=== PATIENT | female | born 1980 | race Caucasian/White ===

== ENCOUNTER 2016-09-10 07:05 | Inpatient (IN) | payer OTHER ==
[~2016-09-10 07:05] MED LIST: DINOPROSTONE 10 MG VAGINAL SUPPOSITORY VG ONE
[2016-09-10 08:22] LABS: BASOPHIL 0.3 % (0-2.0); EOSINOPHIL 1.3 % (0-4.5); MCH 27.6 pg (25.7-33.7); MEAN CELL VOLUME 83.5 fl (80-96); MEAN PLT VOLUME 7.6 fl (7.5-11.1); NEUTROPHILS 77.7 % (42.8-82.8); PLATELET COUNT 228 K/MM3 (134-434); RDW 14.9 % (11.6-15.6); WHITE BLOOD COUNT 13.5 K/mm3 (4.0-10.0)
[2016-09-10 08:24] VITALS: BMI 37.9
[2016-09-10 08:47] LABS: CALCIUM 8.5 mg/dL (8.5-10.1); COCKROFT - GAULT 211.038; CREATININE 0.6 mg/dL (0.55-1.02); INR 1.01 (0.82-1.09); PROTHROMBIN TIME (PATIENT) 11.1 SEC (9.98-11.88)
[2016-09-10 08:50] LABS: ACTIVATED PTT 28.5 SECONDS (26.9-34.4)
[2016-09-10] MEDS ORDERED: BUTORPHANOL TARTRATE 1 MG/ML VIAL IVPUSH ONE ×2 (15:00→19:28)
[2016-09-10] MEDS: DEXTROSE 5%-LACTATED RINGERS 1,000 ML IV SCH (15:05)
[2016-09-10] MEDS ORDERED: AMPICILLIN 2 GM/100 ML BAG (PRE-DOCKED) IVPB ONE (15:10)
--- NOTE | 2016-09-10 16:32 | HP ---
Past Medical History - Primary Care Physician PCP:: Luz Yepez - Admission Chief Complaint: 35 yrs , ectopic 1, 40.6 weeks admitted for induction of labor . last sono & Bpp done on 09/04/16 sliup, Vx,Post Placenta, AFI14.5, largest pocket 6.4cm, BPP8/9,Efw 8'7" History of Present Illness: pnc at [address] [place] [id number] . wt gain 28 lbs work Up : O Pos, Rpr nr, Hbsag neg, Rubella pos, Quantiferon neg, GBS Pos, ! hr UHr254, Hiv neg Serial sono for growth by MFM NT screen risk for Trosomy 1:117 AFP & materna T-21 neg Genetic counselling was done due to one child has Down syndrome. 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 G2 2005 Ectopic , surgical removal ( [facility]). G3 03/24/08 40 weeks 6'9" baby has Down Syndrome. G4 08/06/2009 40 weeks 6'9" Heme/Onc: Yes: Anemia (rx po pnv & iron) Infectious Disease: No: HIV, STD's Endocrine: No: Diabetes Mellitus - Past Surgical History Past Surgical History: Yes: Cholecystectomy (05/2015) Hx Myomectomy: No Hx Transabdominal Cerclage: No Additional Surgical History: pelviscopic surgery for ectopic pregn ? salpingectomy in 2005 ? left salpingectomy - Smoking History Smoking history: Never smoked Have you smoked in the past 12 months: No - Alcohol/Substance Use Hx Alcohol Use: No History of Substance Use: reports: None Home Medications - Allergies Allergies/Adverse Reactions: Allergies Allergy/AdvReac Type Severity Reaction Status Date / Time No Known Drug Allergies Allergy Verified 09/10/16 08:26 - Home Medications Home Medications: Ambulatory Orders Vit #108/Iron/FA [ One Tablet] 1 each PO DAILY 06/19/16 Physical Exam - Maternity Vital Signs: Vital Signs Temperature 98.8 F 09/10/16 16:00 Pulse Rate 89 09/10/16 16:00 Respiratory Rate 20 09/10/16 16:00 Blood Pressure 131/73 09/10/16 16:00 O2 Sat by Pulse Oximetry (%) Selected Entries 09/10/16 07:05 Temperature 98.3 F Pulse Rate 101 H Blood Pressure 137/79 Weight 221 lb Constitutional: Yes: Well Nourished, No Distress, Calm, Obese Eyes: Yes: WNL HENT: Yes: WNL Neck: Yes: WNL Cardiovascular: Yes: Pulse Irregular Lungs: Clear to auscultation Breast(s): Yes: WNL - Abdominal Exam/OB Fundal Height: 42 Number of Fetuses: Single Presentation: Vertex Contractions: Yes Regularity: Irregular Intensity: Unaware Monitor Mode: External Heart Rate (range): 145 Heart Rate Location: Midline Category: I Accelerations: Uniform Decelerations: None - Vaginal Exam/OB Vaginal Bleediing: No Speculum Exam: No Dilatation (cm): close Effacement (%): unefface Amniotic Membrane Status: Intact Presentation: Vertex/Position (exam at 8.35 am) Station: -4 (-4/-3) - Physical Exam Musculoskeletal: Yes: WNL Extremities: Yes: WNL. No: Calf Tenderness Edema: Yes Edema: LLE: 1+, RLE: 1+ Integumentary: Yes: WNL Deep Tendon Reflex Grade: Normal +2 ...Motor Strength: WNL Psychiatric: Yes: WNL, Alert, Oriented - Labs Lab Results: CBC, BMP 09/10/16 08:00 09/10/16 08:00 Laboratory Tests 09/10/16 09/10/16 08:00 08:05 INR 1.01 PTT (Actin FS) 28.5 Blood Type O POSITIVE Antibody Screen Negative Problem List - Problems (1) Post-term , 40-42 weeks of gestation Code(s): O48.0 - POST-TERM (2) Obesity (BMI 35.0-39.9 without comorbidity) Code(s): E66.9 - OBESITY, UNSPECIFIED (3) Positive GBS test Code(s): B95.1 - STREPTOCOCCUS, GROUP B, CAUSING DISEASES CLASSD ELSWHR (4) Elective induction of labor planned Code(s): UKW0954 - Assessment/Plan 35 yrs , ectopic -1 , 40.6 weeks admitted for induction of labor , obesity GBS pos , start IV Ampicilin when reg UC are noted Cervidil Inserted at 8.35 am , follow portocol stadol prn for labor analgesia . Plan vaginal delivery Trial .
[2016-09-10] MEDS: AMPICILLIN (PRE-DOCKED) 1 GM/100 ML BAG IVPB SCH ×2 (18:44→22:30)
--- NOTE | 2016-09-10 19:28 | PN ---
Progress Note, Labor Vaginal Exam #1 Labor Exam Date: 09/10/16 Labor Exam Time: 19:12 Heart Rate (range): 140-150 Dilatation: 6 Effacement (%): 80 Amniotic Membrane Status: Ruptured (AROM clear small amount) Presentation: Vertex/Position Station: -3 Remarks: fhr cat-1 UC q3-4 min cervidil removed pt received stadol at 15.15 hr IV ampicillin gbs prophylaxis started . pt requests for pain meds Selected Entries 09/10/16 09/10/16 18:00 19:00 Temperature 98.5 F Pulse Rate 93 H 90 Blood Pressure 129/78 130/79 Vaginal Exam #2 Labor Exam Date: 09/10/16 Labor Exam Time: 20:30 Heart Rate (range): 140-150 Dilatation: 7 Effacement (%): 90 Amniotic Membrane Status: Ruptured Presentation: Vertex/Position Station: -2 Remarks: fhr cat-1 uc q3-4 min Vaginal Exam #3 Labor Exam Date: 09/10/16 Labor Exam Time: 21:23 Heart Rate (range): 140-90 Dilatation: 10 Effacement (%): 100 Amniotic Membrane Status: Ruptured Station: +1 (+1/+2) Remarks: FHR early decel cat-1 uc q2-3 min bleeding vaginally pt pushing
[2016-09-10] MEDS ORDERED: OXYTOCIN 15 UNITS/ LR 250 ML 250 ML IVPB SCH (19:45)
[2016-09-10] MEDS: OXYTOCIN 10 UNIT/ML 10ML MDV IV SCH ×2 (21:35→22:30)
[2016-09-10] MEDS ORDERED: METHYLERGONOVINE MALEATE 0.2 MG/1 ML AMP IM PRN (21:45)
[2016-09-10] MEDS ORDERED: CARBOPROST TROMETHAMINE 250 MCG/ML AMPUL IM ONE ×2 (22:12→22:45)
[2016-09-10] MEDS ORDERED: MISOPROSTOL 200 MCG TABLET NR ONE (22:25)
[2016-09-10] MEDS ORDERED: BENZOCAINE 20% 57 GM BOTTLE TP PRN (22:44)
[2016-09-10] MEDS ORDERED: oxyCODONE HCL 5 MG TABLET PO PRN (22:44)
[2016-09-10] MEDS ORDERED: WITCH HAZEL 50% (TUCKS) 40 PAD/JAR PAD TP PRN (22:44)
[2016-09-10] MEDS ORDERED: BENZOCAINE 28 GM HEMORRHOIDAL OINTMENT TP PRN (22:44)
[2016-09-10] MEDS ORDERED: BISACODYL 10 MG SUPP.RECT RC PRN (22:44)
--- NOTE | 2016-09-10 23:19 | PN ---
Delivery - Delivery Vaginal Delivery: Spontaneous (Atonic PPH ,bimanual massage after delivery of placenta .,MEU 21.45 im Methergine 0.2 mg im stat 22.12 Hemabate im 250 mcg 22.20 Pitocin 40 IU in 1000ml D5RL continuing 22.25 Cytotec 1000 mcg [place] 22.35 laurent catheter 22.45 Hemabate 250 mcg im 2nd dose) Episiotomy/Laceration: None EBL (cc): 600 (PPH Atonic ) Delivery, Single - Stages of Labor Date 1st Stage Initiatied: 09/10/16 Time 1st Stage Initiated: 14:30 Date 2nd Stage Initiated: 09/10/16 Time 2nd Stage Initiated: 21:23 Date of Delivery: 09/10/16 Time of Delivery: 21:33 Date Placenta Delivered: 09/10/16 Time Placenta Delivered: 21:35 Placenta: Yes: Spontaneous, Uterine Exploration - Condition of Infant 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 IV stadol 2mg given twice Atonic PPH managed by giving Uterotonic meds ( methergine0.25 mg cytotec 1000mcg ,, hemabate 250 mcg x2 doses & Pitocin 40 IU in 1000 ml 22.30 hr v/s Bp 141/72, pulse 95/min o2 sat 98 23.00 hr BP 135/92, pulse 93/min urine out put ( st cath 100 ml at 22.05 hr , laurent output 350 ml at 23.30 hr . TEDS & SCD given
[2016-09-11] MEDS: ACETAMINOPHEN 325 MG TABLET (FP) PO PRN ×3 (01:20→21:05)
[2016-09-11] MEDS: IBUPROFEN 600 MG TABLET (FP) PO PRN ×3 (01:20→21:03)
[2016-09-11] MEDS: D5W-LR W/ 20 UNITS OXYTOCIN 1,000 ML IV SCH (05:19)
[2016-09-11 08:17] LABS: MCH 27.1 pg (25.7-33.7); MCHC 32.3 g/dl (32.0-36.0); MEAN CELL VOLUME 83.9 fl (80-96); MEAN PLT VOLUME 7.7 fl (7.5-11.1); PLATELET COUNT 215 K/MM3 (134-434); RDW 15.2 % (11.6-15.6); WHITE BLOOD COUNT 20.1 K/mm3 (4.0-10.0)
--- NOTE | 2016-09-11 08:20 | PN ---
Post Progress Note - Subjective Subjective: pt feels weak c/o pain at Im injection site on rt thigh bleeding is not heavy. not voided since laurent is taken out Post Day: 1 Type of Delivery: Vital Signs: Vital Signs Temperature 98.8 F 09/11/16 06:00 Pulse Rate 80 09/11/16 06:00 Respiratory Rate 18 09/11/16 06:00 Blood Pressure 131/76 09/11/16 06:00 O2 Sat by Pulse Oximetry (%) 99 09/11/16 01:15 Breast Exam: Yes: Soft Uterus: Yes: Fundus Firm, Fundus below umbilicus, Non-tender Lochia: Yes: Rubra Lochia, amount: Moderate Extremities: Yes: Calves non-tender (slight erythema around im injection site on rt thigh , Rx ice pack ) Perineum: Yes: Intact Activity: Other (not oob yet ) - Labs Labs: CBC WBC 13.5 K/mm3 (4.0-10.0) H 09/10/16 08:00 RBC 3.91 M/mm3 (3.60-5.2) D 09/10/16 08:00 Hgb 10.8 GM/dL (10.7-15.3) D 09/10/16 08:00 Hct 32.6 % (32.4-45.2) D 09/10/16 08:00 MCV 83.5 fl (80-96) 09/10/16 08:00 MCHC 33.0 g/dl (32.0-36.0) 09/10/16 08:00 RDW 14.9 % (11.6-15.6) D 09/10/16 08:00 Plt Count 228 K/MM3 (134-434) 09/10/16 08:00 MPV 7.6 fl (7.5-11.1) 09/10/16 08:00 Neutrophils % 77.7 % (42.8-82.8) 09/10/16 08:00 Lymphocytes % 16.2 % (8-40) D 09/10/16 08:00 Monocytes % 4.5 % (3.8-10.2) 09/10/16 08:00 Eosinophils % 1.3 % (0-4.5) 09/10/16 08:00 Basophils % 0.3 % (0-2.0) 09/10/16 08:00 Problem List - Problems (1) Post-term , 40-42 weeks of gestation Code(s): O48.0 - POST-TERM (2) Obesity (BMI 35.0-39.9 without comorbidity) Code(s): E66.9 - OBESITY, UNSPECIFIED (3) Positive GBS test Code(s): B95.1 - STREPTOCOCCUS, GROUP B, CAUSING DISEASES CLASSD ELSR (4) Elective induction of labor planned Code(s): OMT3462 - (5) Vaginal delivery Code(s): O80 - ENCOUNTER FOR FULL-TERM UNCOMPLICATED DELIVERY (6) PPH ( hemorrhage) Code(s): O72.1 - OTHER IMMEDIATE HEMORRHAGE Qualifiers: hemorrhage type: third-stage Qualified Code(s): O72.0 - Third-stage hemorrhage Assessment/Plan s/p , s/patonic PPH , stable pp cbc pending plan encourage ambulation po fluids
[2016-09-11] MEDS: FERROUS SO4 325 MG TABLET (FP) PO SCH ×2 (08:22→17:01)
[2016-09-11] MEDS: PRENATAL VITAMINS W/ FOLIC ACID TABLET (FP) PO SCH (09:40)
[2016-09-11 14:16] LABS: PLATELET ESTIMATE ADEQUATE (NORMAL)
[2016-09-11] MEDS: DEXTROSE 5%-LACTATED RINGERS 1,000 ML IV SCH (15:01)
[2016-09-11] MEDS ORDERED: SENNOSIDES/DOCUSATE COMBO (SENNA PLUS) TABLET (UD) PO PRN (22:00)
[2016-09-11] MEDS ORDERED: MISOPROSTOL 200 MCG TABLET NR SCH (22:25)
--- NOTE | 2016-09-12 00:22 | PN ---
Post Progress Note Post Day: 2 Type of Delivery: Vital Signs: Vital Signs Temperature 99.0 F 09/11/16 21:50 Pulse Rate 95 H 09/11/16 21:50 Respiratory Rate 18 09/11/16 21:50 Blood Pressure 124/84 09/11/16 21:50 O2 Sat by Pulse Oximetry (%) 99 09/11/16 01:15 Breast Exam: Yes: Soft Uterus: Yes: Fundus Firm Abdomen/GI: Yes: Abdomen soft Lochia: Yes: Rubra Lochia, amount: Small Extremities: Yes: Calves non-tender Perineum: Yes: Intact Activity: Ambulating - Labs Labs: CBC WBC 20.1 K/mm3 (4.0-10.0) H D 09/11/16 07:40 RBC 3.39 M/mm3 (3.60-5.2) L 09/11/16 07:40 Hgb 9.2 GM/dL (10.7-15.3) L D 09/11/16 07:40 Hct 28.5 % (32.4-45.2) L 09/11/16 07:40 MCV 83.9 fl (80-96) 09/11/16 07:40 MCHC 32.3 g/dl (32.0-36.0) 09/11/16 07:40 RDW 15.2 % (11.6-15.6) 09/11/16 07:40 Plt Count 215 K/MM3 (134-434) 09/11/16 07:40 MPV 7.7 fl (7.5-11.1) 09/11/16 07:40 Neutrophils % 84.0 % (42.8-82.8) H 09/11/16 07:40 Lymphocytes % 12.0 % (8-40) D 09/11/16 07:40 Monocytes % 4.0 % (3.8-10.2) 09/11/16 07:40 Eosinophils % 1.3 % (0-4.5) 09/10/16 08:00 Basophils % 0.3 % (0-2.0) 09/10/16 08:00 Differential Comment Manual diff done 09/11/16 07:40 Platelet Estimate Adequate (NORMAL) 09/11/16 07:40 Assessment/Plan as froilan check cbc today check wbc consider dc home if continued stable
[2016-09-12] MEDS: D5W-LR W/ 20 UNITS OXYTOCIN 1,000 ML IV SCH (00:26)
[2016-09-12] MEDS: OXYTOCIN 10 UNIT/ML 10ML MDV IV SCH (00:26)
[2016-09-12] MEDS: ACETAMINOPHEN 325 MG TABLET (FP) PO PRN ×2 (05:11→08:36)
[2016-09-12] MEDS: IBUPROFEN 600 MG TABLET (FP) PO PRN ×2 (05:12→08:36)
[2016-09-12 08:40] LABS: BASOPHIL 0.5 % (0-2.0); EOSINOPHIL 1.9 % (0-4.5); MCHC 32.1 g/dl (32.0-36.0); MEAN CELL VOLUME 84.3 fl (80-96); NEUTROPHILS 65.7 % (42.8-82.8); PLATELET COUNT 207 K/MM3 (134-434); RDW 15.4 % (11.6-15.6); WHITE BLOOD COUNT 12.1 K/mm3 (4.0-10.0)
[2016-09-12] MEDS: FERROUS SO4 325 MG TABLET (FP) PO SCH (09:04)
[2016-09-12] MEDS: PRENATAL VITAMINS W/ FOLIC ACID TABLET (FP) PO SCH (09:04)
--- NOTE | 2016-09-12 12:53 | DS ---
Physical Exam-RN LIAISON Vital Signs: Vital Signs Temperature 99.0 F 09/11/16 21:50 Pulse Rate 95 H 09/11/16 21:50 Respiratory Rate 18 09/11/16 21:50 Blood Pressure 124/84 09/11/16 21:50 O2 Sat by Pulse Oximetry (%) 99 09/11/16 01:15 Constitutional: Yes: Well Nourished, Pallor, Other (no c/o dizziness) Eyes: Yes: WNL HENT: Yes: WNL, Normocephalic Neck: Yes: WNL Cardiovascular: Yes: WNL, Regular Rate and Rhythm Respiratory: Yes: WNL Gastrointestinal: Yes: WNL, Normal Bowel Sounds, Soft ...Rectal Exam: Yes: WNL, Hemorrhoids/External Renal/: Yes: WNL Pelvis: Yes: WNL ....Post : Yes: Uterus firm, Uterus non-tender, Moderate lochia rubra ( perineum intact) Breast(s): Yes: WNL Extremities: Yes: WNL. No: Calf Tenderness Edema: Yes Edema: LLE: 1+, RLE: 1+ Integumentary: Yes: WNL Neurological: Yes: WNL, Alert, Oriented ...Motor Strength: WNL Psychiatric: Yes: WNL Labs: CBC, BMP 09/12/16 06:10 09/10/16 08:00 Delivery - Delivery Vaginal Delivery: Spontaneous (Atonic PPH ,bimanual massage after delivery of placenta .,MEU 21.45 im Methergine 0.2 mg im stat 22.12 Hemabate im 250 mcg 22.20 Pitocin 40 IU in 1000ml D5RL continuing 22.25 Cytotec 1000 mcg [place] 22.35 laurent catheter 22.45 Hemabate 250 mcg im 2nd dose) Type of Anesthesia: None Episiotomy/Laceration: None EBL (cc): 600 (PPH Atonic ) Delivery, Single - Stages of Labor Date 1st Stage Initiatied: 09/10/16 Time 1st Stage Initiated: 14:30 Date 2nd Stage Initiated: 09/10/16 Time 2nd Stage Initiated: 21:23 Date of Delivery: 09/10/16 Time of Delivery: 21:33 Time Placenta Delivered: 21:35 Placenta: Yes: Spontaneous, Uterine Exploration - 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 IV stadol 2mg given twice Atonic PPH managed by giving Uterotonic meds ( methergine0.25 mg cytotec 1000mcg ,, hemabate 250 mcg x2 doses & Pitocin 40 IU in 1000 ml 22.30 hr v/s Bp 141/72, pulse 95/min o2 sat 98 23.00 hr BP 135/92, pulse 93/min urine out put ( st cath 100 ml at 22.05 hr , laurent output 350 ml at 23.30 hr . TEDS & SCD given pp pt was stable Anemia counselled discharge today Discharge Summary Reason For Visit: INDUCTIN OF LABOR Current Active Problems Elective induction of labor planned (Acute) Obesity (BMI 35.0-39.9 without comorbidity) (Acute) PPH ( hemorrhage) (Acute) Positive GBS test (Acute) Post-term , 40-42 weeks of gestation (Acute) Vaginal delivery (Acute) Condition: Stable - Instructions Diet, Activity, Other Instructions: Post Instructions DIET: Continue good diet high in protein, calcium, and iron rich foods. Drink at least eight (8) glasses of water daily in addition to other fluids. ct Regular diet MEDICATIONS: Continue vitamins and iron as previously directed. Motrin and Tylenol may be taken for minor discomfort. ACTIVITY: Mild to moderate exercise may be started in two (2) weeks. Take frequent rest periods. Resume normal activity after six (6) week check up. WOUND CARE OF OPERATIVE SITE: Continue use of perineal bottle until vaginal discharge stops. Keep area clean. Shower daily. Keep abdominal wound dry. Report any drainage or redness to physician. Tub baths, tampons and douches are not permitted for [address] Breast feeding & 0r Bottle feeding BREAST CARE: (For those that are not ): If engorgement occurs: Wear tight fitting bra. Take Tylenol or Motrin for pain. Apply cold packs (ice in bags to each breast ) FAMILY PLANNING: There are many control alternatives to pursue and they should be discussed at your first office visit. You may resume sexual activity after your six (6) week check up. (Remember, is not a contraceptive) NEXT PHYSICIAN APPOINTMENT: Be certain to call for a six (6) week appointment, unless otherwise directed. Call Clinic or got to Emergency Dept if you have any of the following: Heavy vaginal bleeding Painful urination Leg pain Unusual odor noted to vaginal bleeding High fever Red streaking noted on breast Referrals: Luz Yepez MD [Staff Physician] - Disposition: HOME - Home Medications Comprehensive Discharge Medication List: Ambulatory Orders RX: Vit #108/Iron/FA [ One Tablet] 1 each PO DAILY 06/19/16 RX: Acetaminophen [Tylenol .Regular Strength -] 650 mg PO Q3H PRN #0 tablet RX: Ferrous Sulfate [Feosol] 325 mg PO BIDWM #60 tab 09/12/16 RX: Ibuprofen [Motrin -] 200 mg PO Q4H PRN #0 tablet 09/12/16 RX: Vitamins (Sjr) - 1 tab PO DAILY #30 tablet 09/12/16
[2016-09-12 15:28] VITALS: BP 122/78; PULSE 81; TEMP 98.6
== END 2016-09-12 14:10 | disposition home or self-care (01) | DRG 560 ==
LOC: JLDR 07:05 → J3W 09-11 02:10
PROVIDERS: ADMIT Obstetrics & Gynecology; ATTEND Obstetrics & Gynecology
PROC: 10E0XZZ Delivery of Products of Conception, External Approach (ICD-10-PCS; principal; 2016-09-10)
PROC: 3E0P7GC Introduction of Other Therapeutic Substance into Female Reproductive, Via Natural or Artificial Opening (ICD-10-PCS; 2016-09-10)
DX: O48.0 Post-term pregnancy (principal); O99.824 Streptococcus B carrier state complicating childbirth; O72.1 Other immediate postpartum hemorrhage; O99.214 Obesity complicating childbirth; Z37.0 Single live birth; Z3A.40 40 weeks gestation of pregnancy
CPT/HCPCS: 36415; 59409; 80048; 85025; 85610; 85730; 86593; 86850; 86900; 86901

== ENCOUNTER 2017-02-04 01:38 | Emergency (ER) | payer OTHER ==
[2017-02-04 01:46] VITALS: BP 152/92; PULSE 84; TEMP 98.2; BMI 32.3
[2017-02-04] MEDS ORDERED: diphenhydrAMINE HCL 25 MG CAPSULE (FP) PO ONE ×2 (03:12→03:32)
[2017-02-04] MEDS ORDERED: predniSONE 20 MG TABLET (UD) PO ONE (03:12)
--- NOTE | 2017-02-04 03:18 | PDOC ---
History of Present Illness - General Chief Complaint: Rash Stated Complaint: RASH History Source: Patient Exam Limitations: No Limitations - History of Present Illness Initial Comments: 02/04/17 03:13 36 yo F with no pmhx here wtih c/o diffuse itchy pruritic rash. started yesterday. has recently started nuvaring one week ago. has taken many years ago didn't have allergy at that time. no lip or tongue swelling. no wheezing. no lip swelling. swelling. no lightheadedness. no new detergents or lotions. Past History - Past Medical History Allergies/Adverse Reactions: Allergies Allergy/AdvReac Type Severity Reaction Status Date / Time No Known Drug Allergies Allergy Verified 02/04/17 01:44 Home Medications: Ambulatory Orders Vit #108/Iron/FA [ One Tablet] 1 each PO DAILY 06/19/16 Acetaminophen [Tylenol .Regular Strength -] 650 mg PO Q3H PRN #0 tablet Ferrous Sulfate [Feosol] 325 mg PO BIDWM #60 tab 09/12/16 Ibuprofen [Motrin -] 200 mg PO Q4H PRN #0 tablet 09/12/16 Vitamins (Sjr) - 1 tab PO DAILY #30 tablet 09/12/16 Prednisone [Deltasone -] 40 mg PO DAILY #5 tablet MDD 1 02/04/17 Asthma: No Cancer: No Cardiac Disorders: No Diabetes: No Disorders: Yes HTN: No Seizures: No Thyroid Disease: No - Suicide/Smoking/Psychosocial Hx Smoking History: Never smoked Have you smoked in the past 12 months: No Information on smoking cessation initiated: No Hx Alcohol Use: No Drug/Substance Use Hx: No Substance Use Type: Alcohol Hx Substance Use Treatment: No Review of Systems - Review of Systems Constitutional: No: Chills, Diaphoresis, Fever HEENTM: No: Blurred Vision Respiratory: No: Cough, Orthopnea, Shortness of Breath Cardiac (ROS): No: Chest Pain, Edema ABD/GI: No: See HPI : No: Burning, Dysuria, Discharge Integumentary: Yes: Pruritus, Rash All Other Systems: Reviewed and Negative *Physical Exam - Vital Signs Last Vital Signs Temp Pulse Resp BP Pulse Ox 98.2 F 84 14 152/92 99 02/04/17 01:44 02/04/17 01:44 02/04/17 01:44 02/04/17 01:44 02/04/17 01:44 - Physical Exam General Appearance: Yes: Appropriately Dressed. No: Apparent Distress HEENT: positive: Normal ENT Inspection Neck: positive: Trachea midline Respiratory/Chest: positive: Lungs Clear, Normal Breath Sounds. negative: Respiratory Distress Cardiovascular: positive: Regular Rhythm, Regular Rate, S1, S2 Gastrointestinal/Abdominal: positive: Normal Bowel Sounds. negative: Tender, Flat, Soft Musculoskeletal: negative: Normal Inspection, CVA Tenderness Integumentary: positive: Dry, Warm, Hives, Rash, Other (diffuse urticarial rash trumk arms.) Neurologic: positive: slurry control tender II-XII NML intact, Fully Oriented, Alert, Normal Mood/ Affect Medical Decision Making - Medical Decision Making 02/04/17 03:18 36 yo F with allergic reaction likely related to nuva ring. told to dc ring. given pepcid, benadryl and prednisone. folllowup ob / stress analyst *DC/Admit/Observation/Transfer Diagnosis at time of Disposition: Allergic - Discharge Dispostion Disposition: HOME Condition at time of disposition: Improved Admit: No - Prescriptions Prescriptions: Prednisone [Deltasone -] 40 mg PO DAILY #5 tablet MDD 1 - Patient Instructions Printed Discharge Instructions: DI for General Allergic Reactions Additional Instructions: you should take prednisone 40 mg daily. take benadryl 25 mg every 6 hours as needed for itching. follow up with your director of corporate strategy. discontinue your nuvaring. you should return for any difficulty breathing , tongue or lip swelling or any concerns. you will need a other form of control.
[2017-02-04] MEDS ORDERED: predniSONE 20 MG TABLET (UD) ONE (03:32)
== END 2017-02-04 03:45 | disposition home or self-care (01) ==
LOC: JER 01:38
DX: R21 Rash and other nonspecific skin eruption (principal); T78.49XA Other allergy, initial encounter
CPT/HCPCS: 99281-25

== ENCOUNTER 2019-04-19 03:50 | Emergency (ER) | payer OTHER ==
--- NOTE | 2019-04-19 04:15 | PDOC ---
History of Present Illness - General Stated Complaint: ABDOMINAL PAIN Time Seen by Provider: 04/19/19 04:15 History Source: Patient Exam Limitations: No Limitations - History of Present Illness Initial Comments: 38 year old female with PMH nephrolithiasis requiring lithotripsy 1X presented to ED for RUQ/Right flank pain sicne last night prior to bed. Pt reported she ate chicken/pork (not fried) prior to symptoms developing. She reported her pain is constant, pressure, radiating around her flank to her RUQ, no alleviating or aggravating factors. She reported nausea. She denied chest pain, shortness of breath, vomiting, diarrhea, constipation, dysuria, vaginal bleeding , vaginal discharge, lightheadedness. ROS General: denied fever, chills, generalized weakness. HEENT: denied sore throat, rhinorrhea, ear pain. Cardiovascular: denied chest pain, palpitations, syncope, diaphoresis. Respiratory: denied shortness of breath, cough, sputum production, hemoptysis. Gastrointestinal: admitted to abdominal pain, nausea. denied vomiting, diarrhea , constipation, blood in stool. Genitourinary: denied dysuria, increased urinary frequency, hematuria, urinary incontinence, flank pain. Back: denied back pain. Musculoskeletal: denied joint pain, muscle pain, joint swelling. Neurological: denied headache, dizziness, numbness, tingling, weakness. Integumentary: denied rash, laceration, abrasion. Hematologic/Lymphatic: denied bruising or bleeding. PE Constitutional: Well-nourished, Well-developed, appearing stated age. Obese. HEENT: head is normocephalic, atraumatic. EOMI. PERRLA. no posterior pharyngeal erythema.no tonsillar swelling or exudates bilaterally. uvula midline. no peritonsillar swelling, tenderness or abscess. no jaw tenderness or misalignment. Neck: supple. Full ROM. Cardiovascular: regular heart rhythm. no murmurs. no pericardial friction rub. Respiratory: clear to auscultation bilaterally. no crackles, rhonchi or wheezing. no stridor. Gastrointestinal: soft, flat. mild tenderness to palpation to RLQ. murphys negative. normal bowel sounds. no rebound, guarding, masses. Extremities: peripheral pulses intact. no lower extremity edema. Neurological: CN 2-12 grossly intact. moves all four extremities. Psych: awake, alert, oriented x3. follows commands. answers questions appropriately. Past History - Past Medical History Allergies/Adverse Reactions: Allergies Allergy/AdvReac Type Severity Reaction Status Date / Time No Known Drug Allergies Allergy Verified 04/19/19 04:21 Home Medications: Ambulatory Orders NK [No Known Home Medication] 04/19/19 - Psycho Social/Smoking Cessation Hx Smoking History: Never smoked Have you smoked in the past 12 months: No Hx Alcohol Use: No Drug/Substance Use Hx: No Substance Use Type: Alcohol Hx Substance Use Treatment: No ED Treatment Course - LABORATORY CBC & Chemistry Diagram: 04/19/19 04:30 04/19/19 04:30 Medical Decision Making - Medical Decision Making 38 year old female with above PMH presented to ED for RUQ/R flank pain since last night associated with nausea. Initial Vital Signs Temp Pulse Resp BP Pulse Ox 98.5 F 90 16 133/87 100 04/19/19 03:50 04/19/19 03:50 04/19/19 03:50 04/19/19 03:50 04/19/19 03:50 Afebrile. No tachycardia. No tachypnea. Mild hypertension. No hypoxia on room air. Labs ordered: CBC, CMP, lipase, serum , UA/UC Imaging ordered: CT abdomen/pelvis with IV contrast Medications ordered: zofran, maalox, tylenol EKG performed at 04/19/19 05:20 Urine Test Results Urine Color Yellow 04/19/19 04:25 Urine Appearance Clear 04/19/19 04:25 Urine pH 6.0 (5.0-8.0) 04/19/19 04:25 Ur Specific [place] 1.023 (1.010-1.035) 04/19/19 04:25 Urine Protein Negative (NEGATIVE) 04/19/19 04:25 Urine Glucose (UA) Negative (NEGATIVE) 04/19/19 04:25 Urine Ketones Negative (NEGATIVE) 04/19/19 04:25 Urine Blood Negative (NEGATIVE) 04/19/19 04:25 Urine Nitrite Negative (NEGATIVE) 04/19/19 04:25 Urine Bilirubin Negative (NEGATIVE) 04/19/19 04:25 Ur Leukocyte Esterase Trace (NEGATIVE) 04/19/19 04:25 Negative for UTI, WBC 5 with contaminated sample. 04/19/19 05:33 CBC WBC 12.7 K/mm3 (4.0-10.0) H 04/19/19 04:30 RBC 4.39 M/mm3 (3.60-5.2) 04/19/19 04:30 Hgb 12.7 GM/dL (10.7-15.3) 04/19/19 04:30 Hct 37.6 % (32.4-45.2) D 04/19/19 04:30 MCV 85.6 fl (80-96) 04/19/19 04:30 MCH 28.8 pg (25.7-33.7) 04/19/19 04:30 MCHC 33.6 g/dl (32.0-36.0) 04/19/19 04:30 RDW 12.8 % (11.6-15.6) D 04/19/19 04:30 Plt Count 347 K/MM3 (134-434) D 04/19/19 04:30 MPV 8.0 fl (7.5-11.1) 04/19/19 04:30 Absolute Neuts (auto) 7.2 K/mm3 (1.5-8.0) 04/19/19 04:30 Neutrophils % 57.2 % (42.8-82.8) 04/19/19 04:30 Lymphocytes % 34.6 % (8-40) D 04/19/19 04:30 Monocytes % 5.3 % (3.8-10.2) 04/19/19 04:30 Eosinophils % 2.4 % (0-4.5) 04/19/19 04:30 Basophils % 0.5 % (0-2.0) 04/19/19 04:30 Nucleated RBC % 0 % (0-0) 04/19/19 04:30 Mild leukocytosis without left shift. No anemia. 04/19/19 06:06 CMP Sodium 139 mmol/L (136-145) 04/19/19 04:30 Potassium 3.9 mmol/L (3.5-5.1) 04/19/19 04:30 Chloride 108 mmol/L (98-107) H 04/19/19 04:30 Carbon Dioxide 23 mmol/L (21-32) 04/19/19 04:30 Anion Gap 9 MMOL/L (8-16) 04/19/19 04:30 BUN 13.8 mg/dL (7-18) 04/19/19 04:30 Creatinine 0.7 mg/dL (0.55-1.3) 04/19/19 04:30 Est GFR (CKD-EPI)AfAm 129.19 04/19/19 04:30 Est GFR (CKD-EPI)NonAf 111.47 04/19/19 04:30 Random Glucose 96 mg/dL (74-106) 04/19/19 04:30 Calcium 8.5 mg/dL (8.5-10.1) 04/19/19 04:30 Total Bilirubin 0.2 mg/dL (0.2-1) 04/19/19 04:30 AST 15 U/L (15-37) 04/19/19 04:30 ALT 23 U/L (13-61) 04/19/19 04:30 Alkaline Phosphatase 96 U/L (45-117) 04/19/19 04:30 Total Protein 7.2 g/dl (6.4-8.2) 04/19/19 04:30 Albumin 3.3 g/dl (3.4-5.0) L 04/19/19 04:30 Lipase 135 U/L (73-393) 04/19/19 04:30 Serum , Qual Negative 04/19/19 04:30 No electrolyte abnormalities. No MAHENDRA. No transaminitis. Lipase wnl. Serum testing negative. 04/19/19 07:00 Pt signed out to Dr. Lin, pending CT report and dispo. Discharge - Discharge Information Problems reviewed: Yes Clinical Impression/Diagnosis: Abdominal pain Condition: Fair Disposition: HOME - Follow up/Referral Referrals: [facility] [place] [facility] at [place] [Provider Group] - Patient Discharge Instructions Patient Printed Discharge Instructions: DI for Abdominal Pain-Adult Additional Instructions: You were seen in the emergency department for the evaluation of your abdominal pain. Your CT imaging does not show an acute process. However, there is mention of an apparent hypodense in the tail of the pancreas that needs further evaluation. Please return to the emergency department if you have worsening of symptoms or new concerning symptoms. Please follow up with the primary medical doctor group provided to you within 1 week after discharge. Thank you. - Post Discharge Activity
[2019-04-19 04:28] VITALS: TEMP 98.5; BMI 32.3
[2019-04-19] MEDS ORDERED: ONDANSETRON 4 MG/2 ML VIAL IVPUSH ONE (04:32)
[2019-04-19] MEDS ORDERED: ACETAMINOPHEN 1000 MG/100 ML VIAL (NON FORMULARY) IVPB ONE (04:32)
[2019-04-19] MEDS ORDERED: MAG HYDROX/AL HYDROX/SIMETH 30 ML UNIT-DOSE CUP PO ONE (04:32)
[2019-04-19] MEDS ORDERED: MAG HYDROX/AL HYDROX/SIMETH 30 ML UNIT-DOSE CUP ONE (04:38)
[2019-04-19] MEDS ORDERED: ACETAMINOPHEN INJECTION 100 ML IVPB ONE (04:38)
[2019-04-19] MEDS ORDERED: ONDANSETRON 4 MG/2 ML VIAL ONE (04:39)
--- NOTE | 2019-04-19 04:41 | PDOC ---
Attending Attestation - Resident Resident Name: Liz Neff - ED Attending Attestation I have performed the following: I have examined & evaluated the patient, The case was reviewed & discussed with the resident, I agree w/resident's findings & plan, Exceptions are as noted - HPI HPI: 04/19/19 04:39 38 F with h/o kidney stones presenting to ED with R flank and R abdominal pain. Pt states that it started this evening after eating. She notes pain wrapping around her R flank. Associated with nausea without vomiting. No F/C. No diarrhea /constipation. Pt states it does not feel like her previous kidney stone. - Physicial Exam PE: 04/19/19 04:39 "GENERAL: Awake, alert, and fully oriented, in no acute distress. HEAD: No signs of trauma EYES: PERRLA, EOMI, sclera anicteric, conjunctiva clear ENT: Auricles normal inspection, hearing grossly normal, nares patent, oropharynx clear without exudates. Moist mucosa NECK: Nontender, no stepoffs, Normal ROM, supple, no lymphadenopathy, JVD, or masses LUNGS: Breath sounds equal, clear to auscultation bilaterally. No wheezes, and no crackles HEART: Regular rate and rhythm, normal S1 and S2, no murmurs, rubs or gallops ABDOMEN: + R CVAT, + R mid-abdominal TTP, normoactive bowel sounds. No guarding , no rebound. No masses EXTREMITIES: Normal range of motion, no edema. No clubbing or cyanosis. No cords, erythema, or tenderness NEUROLOGICAL: Cranial nerves II through XII intact. 5/5 strength and sensation in all extremities, Normal speech, normal gait, normal cerebellar function SKIN: Warm, Dry, normal turgor, no rashes or lesions noted. - Medical Decision Making 04/19/19 04:40 38 F with R sided abdominal pain and R flank pain. Possible renal colic. Also consider appy vs christina. However, pt without tenderness at Mcburney's or woo' s. - Labs, UA - CTAP - Pain control Pt signed out to oncoming team at 7AM, pending CT, re-evaluation, and possible RUQ US
[2019-04-19 04:58] LABS: EPI CELLS 13.1 /HPF (0-5/HPF); HYALINE CASTS 1 /lpf (0-8); URINE APPEARANCE CLEAR; URINE BILIRUBIN NEGATIVE (NEGATIVE); URINE COLOR YELLOW; URINE GLUCOSE (UA) NEGATIVE (NEGATIVE); URINE KETONE NEGATIVE (NEGATIVE); URINE LEUK ESTERASE TRACE (NEGATIVE); URINE NITRITE NEGATIVE (NEGATIVE); URINE PROTEIN NEGATIVE (NEGATIVE); URINE RBC 2 /hpf (0-4); URINE WBC 5 /hpf (0-5)
[2019-04-19 05:22] LABS: BASO % 0.5 % (0-2.0); EOS % 2.4 % (0-4.5); HEMATOCRIT 37.6 % (32.4-45.2); HEMOGLOBIN 12.7 GM/dL (10.7-15.3); LYMPH % 34.6 % (8-40); MCH 28.8 pg (25.7-33.7); MCHC 33.6 g/dl (32.0-36.0); MEAN CELL VOLUME 85.6 fl (80-96); MONO % 5.3 % (3.8-10.2); NEUT % 57.2 % (42.8-82.8); PLATELET COUNT 347 K/MM3 (134-434); RBC 4.39 M/mm3 (3.60-5.2); RDW 12.8 % (11.6-15.6); WHITE BLOOD COUNT 12.7 K/mm3 (4.0-10.0)
[2019-04-19 05:49] LABS: INR 0.91 (0.83-1.09); PROTHROMBIN TIME (PATIENT) 10.7 SEC (9.7-13.0)
[2019-04-19 05:52] LABS: ALBUMIN 3.3 g/dl (3.4-5.0); BILIRUBIN,TOTAL 0.2 mg/dL (0.2-1); BLOOD UREA NITROGEN 13.8 mg/dL (7-18); CALCIUM 8.5 mg/dL (8.5-10.1); CREATININE 0.7 mg/dL (0.55-1.3); POTASSIUM 3.9 mmol/L (3.5-5.1); TOT PROT 7.2 g/dl (6.4-8.2)
--- NOTE | 2019-04-19 07:47 | PDOC ---
*Physical Exam - Vital Signs Last Vital Signs Temp Pulse Resp BP Pulse Ox 98.5 F 90 16 133/87 100 04/19/19 03:50 04/19/19 03:50 04/19/19 03:50 04/19/19 03:50 04/19/19 03:50 - Physical Exam 04/19/19 08:30 Received sign out from Dr. Neff 38 year old female with PMH nephrolithiasis requiring lithotripsy 1X presented to ED for RUQ/Right flank pain since last night prior to bed. At the time of sign out, the patient had a pending CT abdomen and pelvis. ED Treatment Course - LABORATORY CBC & Chemistry Diagram: 04/19/19 04:30 04/19/19 04:30 - ADDITIONAL ORDERS Additional order review: Laboratory Results 04/19/19 04/19/19 04/19/19 04:30 04:30 04:30 PT with INR 10.70 INR 0.91 PTT (Actin FS) Sodium Potassium Chloride Carbon Dioxide Anion Gap BUN Creatinine Est GFR (CKD-EPI)AfAm Est GFR (CKD-EPI)NonAf Random Glucose Calcium Total Bilirubin AST ALT Alkaline Phosphatase Total Protein Albumin Lipase 135 Serum , Qual Negative Urine Color Urine Appearance Urine pH Ur Specific [place] Urine Protein Urine Glucose (UA) Urine Ketones Urine Blood Urine Nitrite Urine Bilirubin Urine Urobilinogen Ur Leukocyte Esterase Urine WBC (Auto) Urine RBC (Auto) Urine Casts (Auto) U Epithel Cells (Auto) Urine Bacteria (Auto) 04/19/19 04/19/19 04/19/19 04:30 04:30 04:25 PT with INR INR PTT (Actin FS) 29.7 Sodium 139 Potassium 3.9 Chloride 108 H Carbon Dioxide 23 Anion Gap 9 BUN 13.8 Creatinine 0.7 Est GFR (CKD-EPI)AfAm 129.19 Est GFR (CKD-EPI)NonAf 111.47 Random Glucose 96 Calcium 8.5 Total Bilirubin 0.2 AST 15 ALT 23 Alkaline Phosphatase 96 Total Protein 7.2 Albumin 3.3 L Lipase Serum , Qual Urine Color Yellow Urine Appearance Clear Urine pH 6.0 Ur Specific [place] 1.023 Urine Protein Negative Urine Glucose (UA) Negative Urine Ketones Negative Urine Blood Negative Urine Nitrite Negative Urine Bilirubin Negative Urine Urobilinogen 1.0 Ur Leukocyte Esterase Trace Urine WBC (Auto) 5 Urine RBC (Auto) 2 Urine Casts (Auto) 1 U Epithel Cells (Auto) 13.1 Urine Bacteria (Auto) 91.0 04/19/19 04:30 RBC 4.39 MCV 85.6 MCHC 33.6 RDW 12.8 D MPV 8.0 Neutrophils % 57.2 Lymphocytes % 34.6 D Monocytes % 5.3 Eosinophils % 2.4 Basophils % 0.5 - Medications Given in the ED: ED Medications Discontinued Medications Generic Name Dose Route Start Last Admin Trade Name Nelson PRN Reason Stop Dose Admin Acetaminophen 1,000 mg 04/19/19 04:32 04/19/19 04:58 Ofirmev Injection - IVPB 04/19/19 04:33 1,000 mg ONCE ONE Administration Al Hydroxide/Mg Hydroxide 30 ml 04/19/19 04:32 04/19/19 04:41 Mylanta Oral Suspension - PO 04/19/19 04:33 30 ml ONCE ONE Administration Ondansetron HCl 4 mg 04/19/19 04:32 04/19/19 04:57 Zofran Injection IVPUSH 04/19/19 04:33 4 mg ONCE ONE Administration Medical Decision Making - Medical Decision Making 04/19/19 08:36 Patient was reassessed: The patient has no tenderness to palpation in the abdomen. No rebound tenderness noted. The patient states that her pain has abated. CT abdomen and pelvis shows the following findings: "unremarkable liver, spleen , gallbladder, and adrenal glands. Apparent hypodensity in the tail the pancreas on series 3 image 39 is volume averaging." "The punctate nonobstructing calculus in the lower pole of the left kidney. No right renal or ureteral calculi or hydronephrosis". "No evidence of acute appendicitis". A copy of her CT report was given to her. I explained to her the hypodense mass and the need to follow up with her PMD within the week to evaluate further. 04/19/19 08:41 Discharge - Discharge Information Problems reviewed: Yes Clinical Impression/Diagnosis: Abdominal pain Condition: Fair Disposition: HOME - Admission No - Follow up/Referral Referrals: [facility] [place] [facility] at [place] [Provider Group] - Patient Discharge Instructions Patient Printed Discharge Instructions: DI for Abdominal Pain-Adult Additional Instructions: You were seen in the emergency department for the evaluation of your abdominal pain. Your CT imaging does not show an acute process. However, there is mention of an apparent hypodense in the tail of the pancreas that needs further evaluation. Please return to the emergency department if you have worsening of symptoms or new concerning symptoms. Please follow up with the primary medical doctor group provided to you within 1 week after discharge. Thank you. - Post Discharge Activity
[2019-04-19 09:04] VITALS: BP 129/73; PULSE 72
--- NOTE | 2019-04-19 10:36 | EKG ---
Test Reason : Blood Pressure : / mmHG Vent. Rate : 094 BPM Atrial Rate : 094 BPM P-R Int : 176 ms QRS Dur : 086 ms QT Int : 370 ms P-R-T Axes : 059 032 034 degrees QTc Int : 462 ms NORMAL SINUS RHYTHM NORMAL ECG NO PREVIOUS ECGS AVAILABLE Confirmed by WINTER LOYD MD ([id number]) on 04/19/2019 10:36:24 AM Referred By: Confirmed By:WINTER LOYD MD
== END 2019-04-19 09:06 | disposition home or self-care (01) ==
LOC: JER 03:50
PROC: 3E033NZ Introduction of Analgesics, Hypnotics, Sedatives into Peripheral Vein, Percutaneous Approach (ICD-10-PCS; principal; 2019-04-19)
PROC: 3E033NZ Introduction of Analgesics, Hypnotics, Sedatives into Peripheral Vein, Percutaneous Approach (ICD-10-PCS; 2019-04-19)
DX: R10.9 Unspecified abdominal pain (principal); Z87.442 Personal history of urinary calculi
CPT/HCPCS: 36415; 74177-TC; 80053; 81003; 83690; 84703; 85025; 85610; 85730; 87086; 93005; 93010; 96374; 96375; 99283-25; J0131

== ENCOUNTER 2021-02-28 13:02 | Emergency (ER) | payer OTHER ==
[2021-02-28 13:10] VITALS: BP 157/97; PULSE 95; TEMP 97.9; BMI 30.8
[2021-02-28] MEDS ORDERED: KETOROLAC TROMETHAMINE 30 MG/1 ML VIAL IM ONE (13:49)
[2021-02-28] MEDS ORDERED: KETOROLAC TROMETHAMINE 30 MG/1 ML VIAL ONE (13:52)
== END 2021-02-28 14:06 | disposition home or self-care (01) ==
LOC: JERFT 13:02
PROC: 3E0233Z Introduction of Anti-inflammatory into Muscle, Percutaneous Approach (ICD-10-PCS; principal; 2021-02-28)
DX: M79.662 Pain in left lower leg (principal); X50.0XXA Overexertion from strenuous movement or load, initial encounter; Y93.B9 Activity, other involving muscle strengthening exercises
CPT/HCPCS: 99284-25

== ENCOUNTER 2021-06-22 04:09 | Day surgery (SDC) | payer OTHER ==
[2021-06-20 13:05] VITALS: BMI 31.9
[2021-06-22 08:19] LABS: INR 1.03 (0.83-1.09); PROTHROMBIN TIME (PATIENT) 11.9 SEC (9.7-13.0)
[2021-06-22 08:26] LABS: BASO % 0.5 % (0-2.0); EOS % 2.1 % (0-4.5); HEMATOCRIT 38.3 % (32.4-45.2); LYMPH % 36.9 % (8-40); MEAN CELL VOLUME 85.3 fl (80-96); MEAN PLT VOLUME 7.3 fl (7.5-11.1); MONO % 3.7 % (3.8-10.2); NEUT % 56.8 % (42.8-82.8); PLATELET COUNT 327 10^3/uL (134-434); RBC 4.49 M/mm3 (3.60-5.2); RDW 13.1 % (11.6-15.6); WHITE BLOOD COUNT 8.1 K/mm3 (4.0-10.0)
[2021-06-22 08:30] LABS: CHLORIDE 108 mmol/L (98-107); SODIUM 139 mmol/L (136-145)
[2021-06-22 08:33] LABS: ALBUMIN 3.7 g/dl (3.4-5.0); ANION GAP 6 MMOL/L (8-16); BLOOD UREA NITROGEN 11.8 mg/dL (7-18); CO2 25 mmol/L (21-32); GLUCOSE,RANDOM 99 mg/dL (74-106)
[2021-06-22 08:36] LABS: CREATININE 0.8 mg/dL (0.55-1.3); SGOT/AST 19 U/L (15-37); SGPT/ALT 22 U/L (13-61)
[2021-06-22 08:37] LABS: BILIRUBIN,TOTAL 0.5 mg/dL (0.2-1); TOT PROT 7.7 g/dl (6.4-8.2)
[2021-06-22 08:38] LABS: ALK PHOS 81 U/L (45-117)
[2021-06-22] MEDS ORDERED: BUPIVACAINE HCL/PF 0.25% (2.5MG/ML) 10 ML VIAL ONE (09:54)
[2021-06-22] MEDS ORDERED: ONDANSETRON 4 MG/2 ML VIAL ONE (09:56)
[2021-06-22] MEDS ORDERED: DEXAMETHASONE SOD PHOSPHATE 4 MG/1 ML VIAL ONE (09:56)
[2021-06-22] MEDS ORDERED: PROPOFOL 20 ML ONE (09:56)
[2021-06-22] MEDS ORDERED: fentaNYL CITRATE 250 MCG/5 ML VIAL ONE (09:56)
[2021-06-22] MEDS ORDERED: LIDOCAINE HCL/PF 2% SDV 5ML VIAL ONE (09:56)
[2021-06-22] MEDS ORDERED: ROCURONIUM BROMIDE 100 MG/10 ML VIAL ONE (09:57)
[2021-06-22] MEDS ORDERED: MIDAZOLAM HCL 2 MG/2 ML SINGLE DOSE VIAL ONE (09:57)
[2021-06-22] MEDS ORDERED: BUPIVACAINE HCL/PF 0.25% (2.5MG/ML) 10 ML VIAL IJ ONE (10:21)
[2021-06-22] MEDS ORDERED: KETOROLAC TROMETHAMINE 30 MG/1 ML VIAL ONE (10:54)
[2021-06-22] MEDS ORDERED: NEOSTIGMINE METHYLSULFATE 0.5 MG/ML - 10 ML MDV ONE (10:56)
[2021-06-22] MEDS ORDERED: GLYCOPYRROLATE 0.2 MG/1 ML VIAL ONE (10:56)
[2021-06-22] MEDS ORDERED: oxyCODONE HCL 5 MG TABLET PO PRN ×2 (11:28)
[2021-06-22] MEDS ORDERED: ONDANSETRON 4 MG/2 ML VIAL IVPUSH PRN (11:28)
[2021-06-22] MEDS ORDERED: ACETAMINOPHEN 1000 MG/100 ML BAG IVPB ONE (11:29)
[2021-06-22] MEDS ORDERED: LACTATED RINGERS SOLUTION 1,000 ML IV SCH (11:30)
[2021-06-22 14:05] VITALS: TEMP 97.9
[2021-06-22 14:07] VITALS: BP 120/64; PULSE 76
== END 2021-06-22 13:55 | disposition home or self-care (01) ==
LOC: JASU-SURG 04:09
PROVIDERS: ATTEND Obstetrics & Gynecology
PROC: 0UT74ZZ Resection of Bilateral Fallopian Tubes, Percutaneous Endoscopic Approach (ICD-10-PCS; principal; 2021-06-22 10:00)
DX: Z30.2 Encounter for sterilization (principal)
CPT/HCPCS: 36415; 80053; 81025; 84702; 85025; 85610; 86850; 86900; 86901; 86922; 88302-TC; 94760; J0131

== ENCOUNTER 2023-12-12 19:53 | Emergency (ER) | payer OTHER ==
[2023-12-12 19:57] VITALS: RESP 18; TEMP 98.3; BMI 37.8
[2023-12-12] MEDS ORDERED: ONDANSETRON 4 MG/2 ML VIAL ONE (20:22)
[2023-12-12] MEDS ORDERED: ACETAMINOPHEN INJECTION 100 ML IVPB ONE (20:22)
[2023-12-12] MEDS: SODIUM CHLORIDE 0.9% 500 ML INFUS.BAG IV ONE (20:38)
[2023-12-12] MEDS: ACETAMINOPHEN 1000 MG/100 ML BAG IVPB ONE (20:38)
[2023-12-12] MEDS: ONDANSETRON 4 MG/2 ML VIAL IVPUSH ONE (20:39)
[2023-12-12 21:13] LABS: BASO % 0.6 % (0-2.0); EOS % 2.9 % (0-4.5); HEMOGLOBIN 13.5 GM/dL (10.7-15.3); MCH 29.6 pg (25.7-33.7); MCHC 34.5 g/dl (32.0-36.0); MEAN CELL VOLUME 85.9 fl (80-96); MEAN PLT VOLUME 7.6 fl (7.5-11.1); MONO % 5.5 % (3.8-10.2); PLATELET COUNT 349 10^3/uL (134-434); RBC 4.54 M/mm3 (3.60-5.2); RDW 13.8 % (11.6-15.6); WHITE BLOOD COUNT 9.6 K/mm3 (4.0-10.0)
[2023-12-12 21:15] LABS: EPI CELLS >36 /uL (0-25.1); HYALINE CASTS 0 /uL (0-3.1); PH,URINE 5.5 (5.0-8.0); URINE APPEARANCE CLEAR; URINE BACTERIA 1660 /uL (0-1359); URINE BILIRUBIN NEGATIVE (NEGATIVE); URINE COLOR YELLOW; URINE GLUCOSE (UA) NEGATIVE (NEGATIVE); URINE KETONE NEGATIVE (NEGATIVE); URINE LEUK ESTERASE 1+ (NEGATIVE); URINE NITRITE NEGATIVE (NEGATIVE); URINE PROTEIN NEGATIVE (NEGATIVE); URINE RBC 4 /uL (0-23.9); URINE UROBILINOGEN 0.2 mg/dL (0.2-1.0); URINE WBC 67 /uL (0-25.8)
[2023-12-12 21:32] LABS: POTASSIUM 4.1 mmol/L (3.5-5.1)
[2023-12-12 21:36] LABS: ALBUMIN 3.8 g/dl (3.4-5.0); BLOOD UREA NITROGEN 13.2 mg/dL (7-18); CALCIUM 9.2 mg/dL (8.5-10.1)
[2023-12-12 21:39] LABS: CREATININE 0.8 mg/dL (0.55-1.3)
[2023-12-12 21:40] LABS: TOT PROT 7.8 g/dl (6.4-8.2)
[2023-12-12 21:41] LABS: BILIRUBIN,TOTAL 0.2 mg/dL (0.2-1)
[2023-12-12 23:31] LABS: BLOOD UREA NITROGEN 12.5 mg/dL (7-18); CALCIUM 8.4 mg/dL (8.5-10.1); CREATININE 0.7 mg/dL (0.55-1.3); POTASSIUM 4.4 mmol/L (3.5-5.1)
[2023-12-13] MEDS ORDERED: CEPHALEXIN MONOHYDRATE 500 MG CAPSULE (UD) ONE (01:06)
[2023-12-13 01:11] VITALS: BP 138/76; PULSE 78
[2023-12-13] MEDS: CEPHALEXIN MONOHYDRATE 500 MG CAPSULE (UD) PO ONE (01:12)
== END 2023-12-13 01:11 | disposition home or self-care (01) ==
LOC: JER 19:53
PROC: 3E033NZ Introduction of Analgesics, Hypnotics, Sedatives into Peripheral Vein, Percutaneous Approach (ICD-10-PCS; principal; 2023-12-12)
PROC: 3E033GC Introduction of Other Therapeutic Substance into Peripheral Vein, Percutaneous Approach (ICD-10-PCS; 2023-12-12)
DX: N39.0 Urinary tract infection, site not specified (principal); R11.0 Nausea; R10.11 Right upper quadrant pain
CPT/HCPCS: 36415; 74176-TC; 80048; 80053; 81003; 83690; 84703; 85025; 87086; 87186; 93005; 93010; 99285-25; J0131